=== PATIENT | male | born 1955 | race Caucasian/White ===

== ENCOUNTER → 2018-03-11 | Outpatient (CLI) | payer BC ==
--- NOTE | 2018-03-11 08:30 | EKG ---
FACILITY: [facility] PATIENT NAME: JOSÉ MIGUEL VARGSA : [id number] MR: [id number] V: [id number] EXAM DATE: ORDERING PHYSICIAN: SURI YOUNG TECHNOLOGIST: JENNY Lin Reason : PRE-OP Blood Pressure : / mmHG Vent. Rate : 060 BPM Atrial Rate : 060 BPM P-R Int : 152 ms QRS Dur : 094 ms QT Int : 404 ms P-R-T Axes : -14 -22 023 degrees QTc Int : 404 ms Normal sinus rhythm Normal ECG No previous ECGs available Confirmed by KURT PEREZ ([id number]) on 03/11/2018 8:48:50 PM Referred By: HECTOR Confirmed By:KURT PEREZ
== END ==
LOC: LAB 08:00
PROVIDERS: ATTEND Anesthesiology
DX: Z01.812 Encounter for preprocedural laboratory examination (principal); Z01.810 Encounter for preprocedural cardiovascular examination; M75.41 Impingement syndrome of right shoulder
CPT/HCPCS: 36415; 82040; 82247; 82310; 82374; 82435; 82565; 82947; 84075; 84132; 84155; 84295; 84450; 84460; 84520; 93005

== ENCOUNTER → 2018-06-04 | Outpatient (CLI) | payer MEDICARE ==
[~2018-06-04] MED LIST: ALLO-119 PO; ASCO-191 PO; ASPI81TA94 PO; BUPR-124 PO; GLUC100026 PO; HYDR-2966 PO; NAPR-1043 PO; OMEP40CA48 PO; RAMI10CA52 PO
== END ==
LOC: LAB 15:41
PROVIDERS: ATTEND Otolaryngology
DX: J30.9 Allergic rhinitis, unspecified (principal)
CPT/HCPCS: 36415; 86003

== ENCOUNTER → 2018-09-20 | Outpatient (CLI) | payer MEDICARE, OTHER ==
[~2018-09-20] MED LIST changes: -RAMI10CA52 PO; +RAMI10CA9 PO
--- NOTE | 2018-09-20 09:16 | EKG ---
FACILITY: [facility] PATIENT NAME: JOSÉ MIGUEL VARGAS : [id number] MR: [id number] V: [id number] EXAM DATE: ORDERING PHYSICIAN: SURI YOUNG TECHNOLOGIST: CHRISTINE Lin Reason : PREOP Blood Pressure : / mmHG Vent. Rate : 063 BPM Atrial Rate : 063 BPM P-R Int : 168 ms QRS Dur : 090 ms QT Int : 394 ms P-R-T Axes : 016 -27 022 degrees QTc Int : 403 ms Normal sinus rhythm Leftward axis Normal ECG When compared with ECG of 03.11.2018 No significant change was found Confirmed by Jorge Rivera ([id number]) on 09/20/2018 8:39:28 PM Referred By: Confirmed By:Jorge Luis
== END ==
LOC: RESP 08:59
PROVIDERS: ATTEND Anesthesiology
DX: Z01.810 Encounter for preprocedural cardiovascular examination (principal); Z01.812 Encounter for preprocedural laboratory examination; M94.262 Chondromalacia, left knee
CPT/HCPCS: 93005

== ENCOUNTER → 2019-05-21 | Outpatient (CLI) | payer MEDICARE, OTHER ==
--- NOTE | 2019-05-21 10:47 | RADIOLOGY IMAGING REPORT ---
FACILITY: [facility] PATIENT NAME: Chilango Sanders : 1955 MR: [id number] V: [id number] EXAM DATE: ORDERING PHYSICIAN: ARAM AVILEZ TECHNOLOGIST: [place] [facility] [place] : 1955 Visit/Account:[id number] Date of Sevice: 05/21/2019 ORBITS FOREIGN BODY 1 VIEW Given history: MRI clearance Additional history: None Findings:Osseous structures normal. Paranasal sinuses well aerated. There are no radiopaque foreign body seen over the orbits. Impression: Normal study. Patient cleared for MRI. Impression relayed to referring service at time of dictation. Report Dictated By: Hans Winter MD at 05/21/2019 10:33 AM Report E-Signed By: Hans Winter MD at 05/21/2019 10:34 AM WSN:[id number]
--- NOTE | 2019-05-21 12:27 | RADIOLOGY IMAGING REPORT ---
FACILITY: [facility] [place] PATIENT NAME: Chilango Sanders : 1955 MR: [id number] V: [id number] EXAM DATE: ORDERING PHYSICIAN: ARAM AVILEZ TECHNOLOGIST: Location: [facility] Patient: Chilango Sanders : 1955 Visit/Account:[id number] Date of Sevice: 05/21/2019 MR KNEE LT W/O CONTRAST HISTORY: Knee pain COMPARISON: None TECHNIQUE: Multiplanar/multisequence was obtained through the left knee without contrast. Contrast: None FINDINGS: ACL: Intact with a normal contour through the intracondylar notch. Small ganglion adjacent to its ti bial femoral attachment measuring up to 1 cm. PCL: Normal MCL: Normal LCL: Fibular collateral ligament, biceps femoris tendon and popliteus tendons are intact. Iliotibial band is normal. Medial joint space: Nondisplaced oblique undersurface tear of the posterior horn of the medial menisc us extending into the meniscal body mild thinning and irregularity of the weightbearing portion of th e articular cartilage without defect. Lateral joint space: No lateral meniscal tear. Articular cartilage is normal. Joint effusion: Tiny joint effusion Popliteal cyst: None significant Bone marrow: Normal Quadriceps and patellar tendons: Normal Patellofemoral joint: Normal articular cartilage. The retinaculum are intact. No patellar subluxation . Soft tissues: Normal Other findings: None significant IMPRESSION: 1. Nondisplaced oblique undersurface tear of the body and posterior horn of the medial meniscus. 2. Tiny joint effusion. Report Dictated By: Esequiel Fernandez MD at 05/21/2019 12:18 PM Report E-Signed By: Esequiel Fernandez MD at 05/21/2019 12:21 PM WSN:[id number]
== END ==
LOC: MRI 07:24
PROVIDERS: ATTEND Nurse Practitioner Family
DX: S83.242A Other tear of medial meniscus, current injury, left knee, initial encounter (principal)
CPT/HCPCS: 70030

== ENCOUNTER → 2019-06-09 | Outpatient (CLI) | payer MEDICARE, OTHER ==
[~2019-06-09] MED LIST changes: +ASCO500C3; +CHOL10005 PO; +CYA1000 PO; +FEBU40TA2 PO; +GABA-549 PO; +LOSA100T75 PO; +SIMV-54 PO; +[UNRECOGNIZED DRUG - CODE] PO; +[UNRECOGNIZED DRUG - CODE] PO
[2019-06-09 16:46] LABS: PLATELET COUNT, AUTOMATED 251 K/uL (150-450)
== END ==
LOC: LAB 16:14
PROVIDERS: ATTEND Internal Medicine
DX: M10.9 Gout, unspecified (principal); E78.5 Hyperlipidemia, unspecified; I10 Essential (primary) hypertension
CPT/HCPCS: 36415; 82607; 82746; 83036; 84153; 85025